=== PATIENT | male | born 1995 | race Caucasian/White ===

== ENCOUNTER 2021-04-13 09:08 | Emergency (ER) | payer MEDICAID ==
[~2021-04-13] VITALS: Ht 193 cm; Wt 122.5 kg
[~2021-04-13 09:08] MED LIST: INVEGA SUS156 MG/1 M IM; LOMOTIL TABLET1 EACH PO; VICODIN 5-5001 EACH PO
[2021-04-13] MEDS ORDERED: INVEGA 3 MG3 MG PO (09:21)
[2021-04-13] MEDS ORDERED: TESSALON PERLE100 M1 PO (10:47)
[2021-04-13 10:52] VITALS: BP 118/79
== END 2021-04-13 10:53 | disposition home or self-care (01) ==
LOC: M.ERS 09:08
DX: B34.9 Viral infection, unspecified (principal); Z20.822 Contact with and (suspected) exposure to COVID-19; J06.9 Acute upper respiratory infection, unspecified; F31.9 Bipolar disorder, unspecified; F90.9 Attention-deficit hyperactivity disorder, unspecified type; F20.9 Schizophrenia, unspecified